=== PATIENT | female | born 1960 | race Caucasian/White ===

== ENCOUNTER → 2016-11-26 | Outpatient (CLI) | payer OTHER | LOC: ULTRA 10:28 | DX: N60.09 Solitary cyst of unspecified breast (principal) ==

== ENCOUNTER → 2018-06-01 | Outpatient (CLI) | payer OTHER | LOC: BC 01:15 | DX: Z12.31 Encounter for screening mammogram for malignant neoplasm of breast (principal) ==

== ENCOUNTER → 2018-06-03 | Outpatient (CLI) | payer OTHER | LOC: ULTRA 06:27 | DX: N63.21 Unspecified lump in the left breast, upper outer quadrant (principal); N63.12 Unspecified lump in the right breast, upper inner quadrant ==